=== PATIENT | male | born 1950 | race Caucasian/White ===

== ENCOUNTER 2019-01-02 07:40 | Observation (INO) ==
[2019-01-02] MEDS ORDERED: NITROGLYCERIN 0.4 MG/TAB BTL SL PRN (07:50)
--- NOTE | 2019-01-02 07:56 | ERNOTE ---
<Mani Murcia - Last Filed: 01/02/19 07:46> Chest Pain/Cardiac HPI Time Seen by Provider: 01/02/19 07:41 Source: patient Exam Limitations: no limitations Allergies/Adverse Reactions: Allergies amoxicillin Allergy (Verified 01/02/19 07:50) Home Medications: HOME MEDICATIONS Aspirin 325 mg PO HS 01/02/19 [Last Taken 01/01/19 20:00] Potassium Chloride [K-Dur] 10 meq PO DAILY 01/02/19 [Last Taken Unknown] Sotalol HCl [Sotalol] 80 mg PO BID 01/02/19 [Last Taken Unknown] Torsemide [Demadex] 20 mg PO BID 01/02/19 [Last Taken Unknown] Narrative: Patient had onset of left-sided chest pain around 4 AM. It is sharp and pressure with pressure and achy pain up into his jaw and down his left arm. He has some associated shortness of breath and nausea Timing: constant Severity/Quality: moderate - 5/10 Location: left chest Chest Pain Radiation: jaw, arms Review of Systems - Review of Systems Constitutional: Absent: recent illness, fever ENT: Absent: nose congestion, nasal drainage Respiratory: Present: See HPI. Absent: cough Cardiology: Present: See HPI Gastrointestinal/Abdominal: Present: nausea. Absent: vomiting, abdominal pain Genitourinary: Absent: dysuria Musculoskeletal: Absent: back pain Skin: Absent: rash Neurological: Present: dizziness/light-headedness Endocrine: Absent: excessive sweating Social History: No Social History Section defined Physical Exam - Physical Exam General Appearance: Present: wd/wn, alert, no apparent distress Head Exam: Present: normal inspection, no evidence of injury Ears, Nose, Throat: Present: normal ENT inspection Neck: Present: normal inspection, nontender Respiratory: Present: no respiratory distress, no accessory muscle use, chest nontender, lungs clear Cardiovascular/Chest: Present: no murmur, irregularly irregular Gastrointestinal/Abdominal: Present: normal bowel sounds, nontender, nondistended, soft Extremity Exam: Present: normal except -, extremity edema - chronic Neurological Exam: Present: alert, oriented, normal mood/affect, no motor/sensory deficits Skin Exam: Present: normal color, warm/dry Lymphatic Exam: Present: no adenopathy Progress - EKG EKG #1 EKG: atrial fibrillation, no ST T wave changes EKG read: Interp. by me - Transfer of Care Physician Sign Out: Mani Murcia Receiving Physician: Cameron Garcia Pending Results: Labs, X-ray results Expected Disposition: Admit Departure Clinical Impression: Chest pain, Elevated brain natriuretic peptide (BNP) level - Departure Disposition: Still a patient Condition: Stable <Cameron Garcia - Last Filed: 01/02/19 08:55> Chest Pain/Cardiac HPI Immunizations: IMMUNIZATION HX Immunizations Up to Date Yes History of Influenza Vaccine Yes Hx Pneumococcal Vaccination Yes Social History: Preferred Language Tunisian Smoking Status Never smoker Alcohol Use none Drug Use none No Social History Section defined Progress - Results and Orders Patient's Lab Results:: I have reviewed the patient's lab results. - Vital Signs Patient's Vital Signs:: I have reviewed the patient's vital signs. Vital Signs: Vital Signs 01/02/19 07:44 01/02/19 07:47 Pulse Rate 80 83 Respiratory Rate 15 Blood Pressure 143/92 H O2 Sat by Pulse Oximetry 97 - X-Ray X-Ray #1 X-Ray: chest Interpretation: Interp. by me X-ray Comments: I reviewed official radiology report - Progress/Reassessment Progress Note-Subjective: 01/02/19 08:45 Patient had resolved CP after NTG. 1inch NTG paste placed. IV Lasix given. Will admit for rule out. D/W Dr Ling who accepts patient. Patient agreeable. Please see Dr Murcia's note for full H&P.
[2019-01-02 08:12] LABS: Hemoglobin 15.3 gm/dL (13.5-18.0); Mean Cell Volume 90.2 fl (78-100); Mean Corpuscular Hemoglobin 30.7 pg (27-31); Mean Platelet Volume 9.7 fl (8-11.3); Platelet Count 256 K/mm3 (150-450); Red Blood Count 4.99 M/mm3 (4.7-6.0); White Blood Count 5.2 K/mm3 (4.0-10.5)
[2019-01-02 08:20] LABS: Prothrombin Time (Patient) 11.1 Seconds (9.1-10.7)
[2019-01-02 08:21] LABS: INR 1.13 INR (0.92-1.08); Partial Thrombolplastin Time 24.9 Seconds (24-32)
[2019-01-02] MEDS ORDERED: NITROGLYCERIN 1 INCH PACKET TD ONE (08:26)
[2019-01-02 08:33] LABS: Albumin * 3.1 gm/dl (3.4-5.0); Anion Gap 15.4 mmol/L (6.8-13.8); BUN/Creatinine Ratio 13.3 (9.0-21.6); Bilirubin, Total 0.4 mg/dL (0.0-1.1); Ca. Corrected For Albumin 8.4 mg/dL (8.4-10.2); Carbon Dioxide 24.9 mmol/L (24-32.6); Potassium 3.3 mmol/L (3.4-4.6); Total Protein 6.6 gm/dL (6.2-8.2)
[2019-01-02 08:34] LABS: Troponin I 0.017 ng/mL (0.00-0.10)
[2019-01-02] MEDS ORDERED: FUROSEMIDE 10 MG/ML VIAL IV ONE (08:39)
[2019-01-02] MEDS ORDERED: SOTALOL HCL 80 MG TABLET PO ONE (13:53)
[2019-01-02] MEDS ORDERED: ACETAMINOPHEN 325 MG TABLET PO PRN (14:32)
[2019-01-02] MEDS: POTASSIUM CHLORIDE 10 MEQ TABLET.SA PO SCH (15:05)
[2019-01-02] MEDS: TORSEMIDE 20 MG TABLET PO SCH (15:05)
[2019-01-02] MEDS ORDERED: CYCLOBENZAPRINE HCL 10 MG TABLET PO PRN (15:07)
--- NOTE | 2019-01-02 15:07 | HP ---
Chief Complaint - Chief Complaint Date of Service: 01/02/19 Time of Service: 14:52 Chief Complaint: I had chest pain this morning History of Present Illness: 68-year-old male with past medical history of atrial fibrillation, bilateral pedal edema, was evaluated in ER due to retrosternal chest pain/chest pressure irradiating up his neck and down his left upper extremity that started this morning at 4:00 AM. Patient reports that the pain started shortly after waking up and started as a sharp pain that was muscular in nature. He admits to having this pain on and off for more than 6 months and even reported to his lighting fixtures decorator who performed a stress test and said that the pain was non- concerning. Patient also reports recent overexertion and lifting of heavy objects such as kitchen appliances during a move in the past few days, he suspects that he might of hurt himself such as a pulled muscle while helping in the move. He reports associated symptoms of nausea but no vomiting and denies any aggravating factors. Patient became concerned enough to come to our ER where he underwent EKG which was negative for a STEMI but revealed atrial fibrillation with an adequate rate. Patient has an extensive history of atrial fibrillation with occasional PVCs and is treated with sotalol twice a day. He reports taking all of his meds this morning before coming to the hospital. Medical History (Updated 01/02/19 @ 08:55 by Cameron Garcia MD) Atrial fibrillation Edema Hypertension Surgical History: Surgical History (Updated 01/02/19 @ 07:51 by Kely Grimm RN) History of hernia repair History of knee replacement bilaterally Family History: Family History (Updated 01/02/19 @ 09:43 by Ina Jules RN) Brother Prostate cancer Social History: Patient Lives/Resources Home Utilized Preferred Language Bengali Do you have any holiness or Yes: [facility] cultural preference? Smoking Status Never smoker Have you smoked in the past 12 No months Alcohol Use none Drug Use none No Social History Section defined Peds Patient Hx - Developmental: No Pertinent Hx Peds Patient Hx - Medical: No Pertinent Hx Peds Patient Hx - Cardiac/Respiratory: No Pertinent Hx Peds Patient Hx - Surgical: No Surgical History Patient History - Cancer: No Hx of Cancer Review Of Systems (GEN) - Review of Systems Generalized/Overall Review: Present: No Symptoms Reported EENTM: Present: No Symptoms Reported Respiratory: Present: Shortness of Breath - Shortness of breath while going up the stairs Cardiac: Present: Chest Pain, Edema Abdominal: Present: Nausea Genitourinary: Present: No Symptoms Reported Musculoskeletal: Present: Muscle Pain, Other - Thoracic muscular pain Neurological: Present: No Symptoms Reported Skin: Present: No Symptoms Reported Endocrine: Present: No Symptoms Reported Immunizations: IMMUNIZATION HX Immunizations Up to Date Yes History of Influenza Vaccine Yes Hx Pneumococcal Vaccination Yes Allergies/Adverse Reactions: Allergies Allergy/AdvReac Type Severity Reaction Status Date / Time amoxicillin Allergy Verified 01/02/19 09:44 Home Medications: HOME MEDICATIONS Aspirin 325 mg PO HS 01/02/19 [Last Taken 01/01/19 20:00] Potassium Chloride [K-Dur] 10 meq PO DAILY 01/02/19 [Last Taken Unknown] Sotalol HCl [Sotalol] 80 mg PO BID 01/02/19 [Last Taken Unknown] Torsemide [Demadex] 40 mg PO DAILY 01/02/19 [Last Taken Unknown] Exam - Exam Vital Signs: Vital Signs - Last Taken Temp 36.9 C 01/02/19 12:43 Pulse 54 L 01/02/19 14:27 Resp 14 01/02/19 14:27 BP 108/67 01/02/19 14:27 Pulse Ox 99 01/02/19 14:27 Constitutional: Present: Alert, Oriented x3, Cooperative, Well developed, Well nourished, No distress ENT Exam: Present: normal ENT inspection, hearing grossly normal, pharynx normal, TMs normal Eye Exam: bilateral eye: normal inspection, PERRL, EOMI Neck: Present: non-tender, full range of motion, supple, normal inspection, trachea midline Back Exam: Present: normal inspection, no CVA tenderness, no vertebral tenderness Breasts: Present: Exam deferred Respiratory: Present: chest non-tender, lungs clear, normal breath sounds, no respiratory distress, no accessory muscle use Cardiovascular/Chest: Present: normal peripheral pulses, no chest tenderness, no gallop, no JVD, no murmur, irregularly irregular Peripheral Pulses: carotid (R): 3+, carotid (L): 3+, dorsalis-pedis (R): 3+, dorsalis-pedis (L): 3+ Abdomen: Present: Normal bowel sounds, soft, nontender, nondistended, no rebound tenderness, no hepatospenomegaly, no masses, obese /Rectal: Present: Exam deferred Extremity: Present: normal range of motion, non-tender, normal inspection, no calf tenderness, pedal edema - Bilateral 3+ pedal edema Skin Exam: Present: normal color, warm/dry, no cyanosis Lymphatic: Present: no adenopathy Neurologic: Present: road traffic controller II-XII nml as tested, normal cerebellar test, no motor/sensory deficits, alert, normal mood/affect, oriented x 3 Appearance: Present: appropriate appearance, appropriate insight, neat, no memory impairment Eye contact: Present: cooperative, good eye contact, normal speech Thoughts: Present: normal thought pattern Diagnostic Studies: Abnormal Lab Results 01/02/19 01/02/19 01/02/19 Range/Units 08:09 08:09 08:09 Eosinophils % 4.8 H (0.0-3.0) % Basophils % 1.5 H (0.0-1.0) % Lymphocytes # 1.47 L (1.5-3.5) k/mm3 PT 11.1 H (9.1-10.7) Seconds INR (Anticoag Therapy) 1.13 H (0.92-1.08) INR Sodium 145 H (132-142) mmol/L Plasma Sodium 146 H (130-142) mmol/L Potassium 3.3 L (3.4-4.6) mmol/L Chloride 108 H (97-106) mmol/L Anion Gap 15.4 H (6.8-13.8) mmol/L Creatinine 1.66 H (0.4-1.4) mg/dL Est GFR (Non-Af Amer) 44 L (60-130) mL/min Random Glucose 181 H (70-110) mg/dL B-Natriuretic Peptide 1334 H (5-350) pg/mL Albumin 3.1 L (3.4-5.0) gm/dl Laboratory Results WBC 5.2 K/mm3 (4.0-10.5) 01/02/19 08:09 RBC 4.99 M/mm3 (4.7-6.0) 01/02/19 08:09 Hgb 15.3 gm/dL (13.5-18.0) 01/02/19 08:09 Hct 45.0 % (42.0-52.0) 01/02/19 08:09 MCV 90.2 fl (78-100) 01/02/19 08:09 MCH 30.7 pg (27-31) 01/02/19 08:09 MCHC 34.0 g/dl (32-36) 01/02/19 08:09 RDW 13.0 % (11.5-14.0) 01/02/19 08:09 Plt Count 256 K/mm3 (150-450) 01/02/19 08:09 MPV 9.7 fl (8-11.3) 01/02/19 08:09 Immature Gran % (Auto) 0.20 % (0.001-0.429) 01/02/19 08:09 Immature Gran # (Auto) 0.01 K/mm3 (0.000-0.0310) 01/02/19 08:09 57.0 % (42-75.0) 01/02/19 08:09 28.1 % (20-51) 01/02/19 08:09 8.4 % (0.0-9) 01/02/19 08:09 4.8 % (0.0-3.0) H 01/02/19 08:09 1.5 % (0.0-1.0) H 01/02/19 08:09 Nucleated RBC % 0.0 k/mm3 (0-1) 01/02/19 08:09 3.0 K/mm3 (1.3-6.0) 01/02/19 08:09 1.47 k/mm3 (1.5-3.5) L 01/02/19 08:09 0.4 k/mm3 (0.0-1.0) 01/02/19 08:09 0.3 k/mm3 (0.0-0.7) 01/02/19 08:09 Absolute Basophils 0.1 k/mm3 (0.0-0.1) 01/02/19 08:09 PT 11.1 Seconds (9.1-10.7) H 01/02/19 08:09 INR (Anticoag Therapy) 1.13 INR (0.92-1.08) H 01/02/19 08:09 PTT ([place]) 24.9 Seconds (24-32) 01/02/19 08:09 Sodium 145 mmol/L (132-142) H 01/02/19 08:09 146 mmol/L (130-142) H 01/02/19 08:09 Potassium 3.3 mmol/L (3.4-4.6) L 01/02/19 08:09 Chloride 108 mmol/L (97-106) H 01/02/19 08:09 Carbon Dioxide 24.9 mmol/L (24-32.6) 01/02/19 08:09 15.4 mmol/L (6.8-13.8) H 01/02/19 08:09 BUN 22 mg/dL (6-23) 01/02/19 08:09 1.66 mg/dL (0.4-1.4) H 01/02/19 08:09 Est GFR (Non-Af Amer) 44 mL/min (60-130) L 01/02/19 08:09 13.3 (9.0-21.6) 01/02/19 08:09 181 mg/dL (70-110) H 01/02/19 08:09 Calcium 8.0 mg/dL (7.9-10.9) 01/02/19 08:09 Calcium Adj for Albumin 8.4 mg/dL (8.4-10.2) 01/02/19 08:09 0.4 mg/dL (0.0-1.1) 01/02/19 08:09 AST 20 U/L (0-48) 01/02/19 08:09 ALT 25 U/L (19-67) 01/02/19 08:09 78 U/L (50-170) 01/02/19 08:09 0.018 ng/mL (0.00-0.10) 01/02/19 13:45 B-Natriuretic Peptide 1334 pg/mL (5-350) H 01/02/19 08:09 6.6 gm/dL (6.2-8.2) 01/02/19 08:09 3.1 gm/dl (3.4-5.0) L 01/02/19 08:09 Assessment/Plan - Narrative Narrative: Patient was evaluated and medical chart was reviewed and decision to admit for rule out myocardial infarction was taken. Repeat troponins are negative so far and EKG only demonstrates atrial fibrillation occasional atrial flutter which has corrected with his usual sotalol. For now patient denies chest pain but admits to having muscle pain in his thorax which he now recalls that is possible that he pulled a muscle or injured himself while lifting heavy appliances over the past few days. Therefore given his risk factors we will keep him overnight and order a x-ray troponin for evaluation and possibly discharge him home tomorrow. - Assessment/Plan (1) Ruled out for myocardial infarction Problem: Acute (2) Elevated brain natriuretic peptide (BNP) level Problem: Acute (3) Afib Problem: Acute (4) PVC (premature ventricular contraction) Problem: Acute
[2019-01-02] MEDS ORDERED: ASPIRIN 325 MG TABLET.DR PO SCH (21:00)
[2019-01-02] MEDS: SOTALOL HCL 80 MG TABLET PO SCH (21:18)
[2019-01-03] MEDS: SOTALOL HCL 80 MG TABLET PO SCH (08:00)
[2019-01-03] MEDS: TORSEMIDE 20 MG TABLET PO SCH (08:01)
[2019-01-03] MEDS: POTASSIUM CHLORIDE 10 MEQ TABLET.SA PO SCH (08:01)
--- NOTE | 2019-01-03 10:36 | DS ---
(1) Ruled out for myocardial infarction Problem: Resolved (2) Elevated brain natriuretic peptide (BNP) level Problem: Acute (3) Afib Problem: Resolved (4) PVC (premature ventricular contraction) Problem: Chronic (5) Muscle injury Problem: Acute Description of Stay: 68-year-old male admitted to our institution for a rule out a myocardial infarction was evaluated at bedside and was found to be afebrile in no acute distress. Patient has maintained stable vitals, and denies recurrence of chest pressure or chest pain. He is completely asymptomatic and is agreeing to go home today. Serial troponins x3 have been negative. So patient was informed of his results and was instructed to follow-up with his PCP who is in [place] as well as his it sales executive for a possible diagnosis of CHF which is indicated by bilateral pedal edema and elevated BNP. Patient was evaluated and was found to be in adequate clinical condition to go home. Therefore we will discharge patient with his routine medication and additional days of muscle relaxants for a possible muscular injury in his thorax due to him lifting up heavy appliances a day before the hospitalization. Procedures Performed: none Results and Findings: Lab Pending Results 01/02/19 08:09: WBC 5.2, RBC 4.99, Hgb 15.3, Hct 45.0, MCV 90.2, MCH 30.7, MCHC 34.0, RDW 13.0, Plt Count 256, MPV 9.7, Immature Gran % (Auto) 0.20, Immature Gran # (Auto) 0.01, Neutrophils % 57.0, Lymphocytes % 28.1, Monocytes % 8.4, Eosinophils % 4.8 H, Basophils % 1.5 H, Nucleated RBC % 0.0, Neutrophils # 3.0, Lymphocytes # 1.47 L, Monocytes # 0.4, Eosinophils # 0.3, Absolute Basophils 0.1 01/02/19 08:09: PT 11.1 H, INR (Anticoag Therapy) 1.13 H, PTT ([place]) 24.9 01/02/19 08:09: Sodium 145 H, Plasma Sodium 146 H, Potassium 3.3 L, Chloride 108 H, Carbon Dioxide 24.9, Anion Gap 15.4 H, BUN 22, Creatinine 1.66 H, Est GFR (Non-Af Amer) 44 L, BUN/Creatinine Ratio 13.3, Random Glucose 181 H, Calcium 8.0, Calcium Adj for Albumin 8.4, Total Bilirubin 0.4, AST 20, ALT 25, Alkaline Phosphatase 78, Troponin I 0.017, B-Natriuretic Peptide 1334 H, Total Protein 6.6, Albumin 3.1 L 01/02/19 13:45: Troponin I 0.018 01/02/19 19:45: Troponin I 0.018 Discharge Location: Home Disposition: Home self-care Condition: Good Face to Face Encounter completed per [facility] Guidelines: No Discharge Activity: Activity as tolerated Discharge Diet: Low salt, Low fat/chol Additional Patient Instructions (free text): -Please make TCM appointment unless long-term discharge. Thank you! Lotus @ [phone]. Prescriptions (Any new or edited meds): Cyclobenzaprine HCl [Flexeril] 5 mg PO TID PRN 5 Days #15 tab PRN Reason: Muscle Spasm Complete Home Medications List: Complete Home Medication List: Aspirin 325 mg PO HS 01/02/19 Potassium Chloride [K-Dur] 10 meq PO DAILY 01/02/19 Sotalol HCl [Sotalol] 80 mg PO BID 01/02/19 Torsemide [Demadex] 40 mg PO DAILY 01/02/19 Cyclobenzaprine HCl [Flexeril] 5 mg PO TID PRN 5 Days #15 tab 01/03/19
[2019-01-03 11:29] VITALS: BP 121/80
== END 2019-01-03 11:29 | disposition home or self-care (01) ==
LOC: ER 07:40 → MS 07:40
PROVIDERS: ADMIT Family Medicine; ATTEND Family Medicine
DX: T14.8XXA Other injury of unspecified body region, initial encounter; I48.91 Unspecified atrial fibrillation; I49.3 Ventricular premature depolarization
CPT/HCPCS: 36415; 71020; 71046; 80053; 83519; 83880; 84484; 85025; 85610; 85730; 93005; 96374; 99285; G0378